=== PATIENT | female | born 1990 | race Caucasian/White ===

== ENCOUNTER 2016-12-11 13:32 | Inpatient (IN) | payer MEDICAID ==
[~2016-12-11] VITALS: Ht 152.4 cm; Wt 66.8 kg
[2016-12-11 13:55] VITALS: Ht 152.4 cm; Wt 66.8 kg
[2016-12-11 14:19] VITALS: BP 116/69; PULSE 93; RESP 18
[2016-12-11] MEDS ORDERED: LACTATED RINGER'S 1,000 ML IV ONE ×2 (15:00→16:32)
[2016-12-11] MEDS ORDERED: LACTATED RINGER'S 1,000 ML IV PRN (15:00)
[2016-12-11] MEDS ORDERED: LACTATED RINGER'S 1,000 ML IV SCH ×2 (16:14→16:22)
[2016-12-11] MEDS ORDERED: CEFAZOLIN 2 GM/50 ML (PMX) 50 ML IV SCH (16:30)
[2016-12-11] MEDS ORDERED: CARBOPROST 250 MCG INJ IM PRN ×3 (16:30→21:30)
[2016-12-11] MEDS ORDERED: METHYLERGONOVINE 0.2 MG INJ IM PRN ×3 (16:30→21:30)
[2016-12-11] MEDS ORDERED: CEFAZOLIN 2 GM/50 ML (PMX) 50 ML IV ONE (16:30)
[2016-12-11] MEDS ORDERED: OXYTOCIN 30 UNITS/LR 500 ML IV SCH (16:30)
[2016-12-11] MEDS ORDERED: MISOPROSTOL 200 MCG TAB PR PRN ×3 (16:30→21:30)
[2016-12-11] MEDS ORDERED: OXYTOCIN 30 UNITS/LR 500 ML IV PRN ×3 (16:30→21:30)
[2016-12-11 16:34] LABS: ADD SCAN DIFF NO
[2016-12-11 16:37] LABS: BASOPHIL # 0.1 10^3/ul (0.0-0.1); BASOPHILS % 0.3 % (0.0-2.0); EOSINOPHILS # 0.1 10^3/ul (0.0-0.5); EOSINOPHILS % 0.9 % (0.0-7.0); HEMATOCRIT 37.4 % (37.0-47.0); HEMOGLOBIN 12.1 g/dl (12.0-16.0); LYMPHOCYTES # 2.4 10^3/ul (0.8-2.9); LYMPHOCYTES % 16.5 % (15.0-51.0); MEAN CORPUSCULAR HEMOGLOBIN 28.3 pg (29.0-33.0); MEAN CORPUSCULAR HGB CONC 32.4 g/dl (32.0-37.0); MEAN CORPUSCULAR VOLUME 87.6 fl (82.0-101.0); MEAN PLATELET VOLUME 12.1 fl (7.4-10.4); MONOCYTE # 0.9 10^3/ul (0.3-0.9); MONOCYTES % 5.8 % (0.0-11.0); NEUTROPHILS % 74.5 % (39.0-77.0); PLATELET COUNT 253 10^3/UL (140-415); RED BLOOD COUNT 4.27 10^6/ul (4.20-5.40); RED CELL DISTRIBUTION WIDTH 13.8 % (11.5-14.5); WHITE BLOOD COUNT 14.7 10^3/ul (4.8-10.8)
[2016-12-11 16:56] LABS: INR 0.98
[2016-12-11 16:57] LABS: PARTIAL THROMBOPLASTIN TIME 26.5 Sec (25.0-35.0)
[2016-12-11] MEDS ORDERED: FENTAnyl 50 MCG/ML VIAL ONE (16:59)
[2016-12-11] MEDS ORDERED: morphine SULFATE/PF (10 MG/10 ML) INJ ONE (17:00)
[2016-12-11] MEDS ORDERED: CITRIC ACID/NA CITRATE 30 ML CUP PO ONE (17:00)
[2016-12-11] MEDS ORDERED: ONDANSETRON 4 MG INJ IV ONE (17:00)
[2016-12-11] MEDS ORDERED: PHENYLephrine (100 MCG/ML) 5ML SYG ONE (17:16)
[2016-12-11] MEDS ORDERED: METOCLOPRAMIDE 10 MG INJ ONE (17:20)
[2016-12-11] MEDS ORDERED: PROCHLORPERAZINE 10 MG INJ IV PRN (18:00)
[2016-12-11] MEDS ORDERED: HYDROmorphONE 1 MG/ML SYG IV PRN ×2 (18:00)
[2016-12-11] MEDS ORDERED: KETOROLAC 30 MG INJ IV PRN (18:00)
[2016-12-11] MEDS ORDERED: DIPHENHYDRAMINE 50 MG INJ IV PRN (18:00)
[2016-12-11] MEDS ORDERED: NALOXONE (0.4 MG/ML) INJ IV PRN (18:00)
[2016-12-11] MEDS ORDERED: ONDANSETRON 4 MG INJ IV PRN (18:00)
--- NOTE | 2016-12-11 18:16 | HP ---
Date/Time of Note Date/Time of Note DATE: 12/11/16 TIME: 17:24 OB - History Hx of Present Free Text/Dictation 26 years old female 2 para 1 with the EDC January 04, 2017 admitted to [facility] at 36 weeks and 4 day with a history of previous in active labor patient is being prepared to undergo repeat she has been counseled regarding the complication of the surgery including but not limited bowel and bladder injury wound infection wound hematoma and she would like to proceed with the operation This patient has been under the care of the [facility] her was not complicated with gestational diabetes -induced hypertension or any other surgical or medical condition Allergies denies allergy to any known Social habits denies a smoking or drinking Family history unremarkable Review of system within normal Physical examination feet 146 pounds Blood pressure 116/69 pulse 93 respiration 18 temperature 97.7 Head ears nose and throat negative Neck supple no thyromegaly Lungs clear to P&A Heart normal sinus rhythm no murmur Abdomen fundal height 36 cm from symphysis pubis with a heart rate category 1 contraction every 3-5 minutes vertex presentation by Kaiden maneuver Pelvic examination deferred Extremities no edema no varicosities Impression Intrauterine at 36 weeks4 days History of previous in active labor Plan repeat section Patient has been counseled regarding the complication of the surgery as it was mentioned before and she would like to proceed with the operation. Estimated Due Date: January 04, 2017 : 2 Para: 1 Care: Good Care Ultrasounds: Normal mid trimester US Obstetrical Complications: None Medical Complications: None Past Family/Social History * Past Medical, Surgical, Family and Obstetric Histories reviewed from chart. Rubella: immune RPR/VDRL: Negative GBS Status: Negative HBsAG: Negative OB Admission Exam Vital Signs Vital Signs Vital Signs Date Time Temp Pulse Resp B/P Pulse Ox O2 Delivery O2 Flow Rate FiO2 12/11/16 14:19 97.7 93 18 116/69 Room Air Physical Exam HEENT: WNL Lungs: Clear, Equal Abdomen: WNL Extremities: Normal Reflexes: Normal Cervical Dilatation: None Effacement: 0% Station: -2 Heart Rate: 130's Accelerations: Accelerations Present Decelerations: No Decelerations Varibility: Marked Intensity: Firm Last 72 hours Lab Results CBC & BMP 12/11/16 14:55 OB Assessment/Plan Reason for admission: other (Repeat in active labor at 36 weeks and 4 days) ASHLEIGH BORRERO MD December 11, 2016 17:34
[2016-12-11] MEDS: OXYTOCIN 30 UNITS/LR 500 ML IV SCH (21:16)
[2016-12-11 21:30] VITALS: BP 111/62; PULSE 93; RESP 18
[2016-12-11] MEDS ORDERED: ACETAMINOPHEN/CODEINE #3 TAB PO PRN ×2 (21:30)
[2016-12-11] MEDS ORDERED: LANOLIN 7 GM TUBE TOP PRN (21:30)
[2016-12-11] MEDS ORDERED: CEFAZOLIN 1 GM/50 ML (PMX) 50 ML IVPB SCH (21:30)
[2016-12-11] MEDS ORDERED: OXYCODONE/ACETAMINOPHEN (5/325) TAB PO PRN ×2 (21:30)
[2016-12-11 22:00] VITALS: BP 111/63; PULSE 91; RESP 18
--- NOTE | 2016-12-11 22:00 | OPR ---
DATE OF OPERATION: 12/11/2016 PREOPERATIVE DIAGNOSES: 1. Intrauterine at 36 weeks and 4 days. 2. History of previous section, in active labor. POSTOPERATIVE DIAGNOSES: 1. Intrauterine at 36 weeks and 4 days. 2. History of previous section, in active labor. OPERATION PERFORMED: Repeat transverse low cervical section. SURGEON: Ashleigh Castillo MD MEDICAL FACILITIES SECTION DIRECTOR: Keven Torres MD ANESTHESIA: Spinal. ANESTHESIOLOGIST: Dr. Young FINDINGS: Live baby with the 8 and 9. DETAILS OF THE PROCEDURE: Under satisfactory spinal anesthesia, the patient was prepped and draped and placed in supine position, tilted to the left. Pfannenstiel incision was made. Old scar was re moved. Incision carried through the subcutaneous tissue. Bleeders brought under control with elect rocautery. Fascia incised to the length of the incision. Rectus muscle divided in midline. Perito neum exposed, entered through a transverse incision. Exploration of abdomen, gravid uterus, normal appearing tubes and ovaries, extremely thinned out lower segment of the uterus to the thickness of 2 mm. Bladder flap was developed. Transverse incision was made in the lower segment of the uterus. Amniotic sac ruptured. Clear amniotic fluid noted. Live baby was delivered from unengaged vertex. Nasal and oropharyngeal suction was performed. Baby handed to the team for immediate att ention. Patient received 20 units of Pitocin. Placenta delivered manually intact. Uterine cavity cleaned with wet sponge, drainage established. Uterus closed in 2 layers using Monocryl #1 in terri nuous fashion. Peritoneal cavity irrigated with warm saline. Sponge, needle, and instrument report ed to be correct. Abdominal peritoneum closed with 2-0 chromic catgut continuously. Rectus muscle approximated with few interrupted 2-0 chromic catgut. Fascia closed with #1 PDS in a continuous fas hion. Subcutaneous tissue approximated with 2-0 chromic catgut and the skin closed with corey. E stimated blood loss 600 mL. Urine bag contained 200 mL of clear urine. The patient tolerated proce dure well, transferred to recovery room in a good condition. Dictated By: ASHLEIGH WHITE/NTS Conf#: [id number] DID#: [id number]
[2016-12-11 23:00] VITALS: BP 112/59; PULSE 86; RESP 18
[2016-12-12] VITALS: BP 116/72; PULSE 90; RESP 18
[2016-12-12] MEDS: OXYTOCIN 30 UNITS/LR 500 ML IV SCH ×3 (00:59→12:32)
[2016-12-12 04:00] VITALS: BP 106/65; PULSE 90; RESP 18
[2016-12-12] MEDS: IBUPROFEN 600 MG TAB PO SCH ×5 (05:26→23:45)
[2016-12-12 08:24] VITALS: BP 101/68; PULSE 91; RESP 16
[2016-12-12] MEDS: SENNA/DOCUSATE NA (8.6MG/50MG) TAB PO SCH ×2 (09:01→21:15)
[2016-12-12 10:16] LABS: ADD SCAN DIFF NO
--- NOTE | 2016-12-12 10:20 | PN ---
Date/Time of Note Date/Time of Note DATE: 12/12/16 TIME: 10:20 OB Subjective Subjective Subjective Post day 1 Afebrile vital signs stable abdomen soft incision lochia moderate bowel sounds. Ambulation is recommended extremities normal ASHLIEGH BORRERO MD December 12, 2016 10:20
[2016-12-12 10:22] LABS: BASOPHILS % 0.2 % (0.0-2.0); EOSINOPHILS % 0.3 % (0.0-7.0); HEMATOCRIT 31.1 % (37.0-47.0); HEMOGLOBIN 10.2 g/dl (12.0-16.0); LYMPHOCYTES # 1.6 10^3/ul (0.8-2.9); LYMPHOCYTES % 10.6 % (15.0-51.0); MEAN CORPUSCULAR HEMOGLOBIN 28.7 pg (29.0-33.0); MEAN CORPUSCULAR HGB CONC 32.8 g/dl (32.0-37.0); MEAN CORPUSCULAR VOLUME 87.4 fl (82.0-101.0); MEAN PLATELET VOLUME 11.4 fl (7.4-10.4); MONOCYTE # 0.8 10^3/ul (0.3-0.9); MONOCYTES % 5.2 % (0.0-11.0); NEUTROPHIL # 12.4 10^3/ul (1.6-7.5); NEUTROPHILS % 82.8 % (39.0-77.0); PLATELET COUNT 198 10^3/UL (140-415); RED BLOOD COUNT 3.56 10^6/ul (4.20-5.40); RED CELL DISTRIBUTION WIDTH 13.7 % (11.5-14.5)
[2016-12-12 12:17] VITALS: BP 107/72; PULSE 102; RESP 14
[2016-12-12 15:54] VITALS: BP 111/74; PULSE 95; RESP 14
[2016-12-12] MEDS ORDERED: IBUPROFEN 600 MG TAB PO SCH (18:00)
[2016-12-12 19:45] VITALS: BP 113/71; PULSE 100; RESP 18
[2016-12-13] MEDS: OXYTOCIN 30 UNITS/LR 500 ML IV SCH ×6 (01:16→13:16)
[2016-12-13 04:00] VITALS: BP 98/74; PULSE 79; RESP 18
[2016-12-13] MEDS: IBUPROFEN 600 MG TAB PO SCH ×3 (05:55→17:10)
[2016-12-13] MEDS: SENNA/DOCUSATE NA (8.6MG/50MG) TAB PO SCH (08:13)
[2016-12-13 08:15] VITALS: BP 105/67; PULSE 86; RESP 19
--- NOTE | 2016-12-13 09:49 | PD.PPDC ---
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
--- NOTE | 2016-12-13 09:57 | DS ---
Date/Time of Note Date/Time of Note DATE: 12/13/16 TIME: 09:50 Discharge Summary Admission/Discharge Info Admit Date/Time December 11, 2016 at 16:18 Discharge Date/Time December 13, 10 AM Final Diagnosis Day 2 post section Patient Condition: Good Procedures section Hx of Present Illness Term history of previous Hospital Course Uneventful satisfactory recovery Follow-up Plan Post recommendation, advised patient to make an appointment with the clinic in 5 days for post follow-up check ASHLEIGH BORRERO MD December 13, 2016 09:57
[2016-12-13 16:00] VITALS: BP 104/57; PULSE 86; RESP 18
[2016-12-14] MEDS ORDERED: DIPHTH/TET/ACEL PERTUSS (ADULT) 0.5 ML VIAL IM* ONE (09:00)
== END 2016-12-13 18:00 | disposition home or self-care (01) | DRG 766 ==
LOC: L-D 13:32 → OBT 13:32 → L-D 16:18 → PP1 21:14
PROVIDERS: ADMIT Obstetrics & Gynecology; ATTEND Obstetrics & Gynecology
PROC: 10D00Z1 Extraction of Products of Conception, Low, Open Approach (ICD-10-PCS; principal; 2016-12-11 17:00)
DX: O34.211 Maternal care for low transverse scar from previous cesarean delivery (principal); Z37.0 Single live birth; Z3A.36 36 weeks gestation of pregnancy
CPT/HCPCS: 36415; 85025; 85610; 85730; 86592; 86780; 86850; 86885; 86900; 86901; 87340; 94760; 96360; 96361; 99464; G0463; J0690; J2274; J2370; J2405; J2590; J2765; J2790; J3010; J7120